=== PATIENT | female | born 1945 | race Caucasian/White ===

== ENCOUNTER 2021-07-08 01:40 | Outpatient (CLI) | payer MEDICARE, SELFPAY ==
--- NOTE | 2021-07-08 09:55 | DI.RAD_ITS ---
Exam(s) RF BARIUM SWALLOW EXAM: RF BARIUM SWALLOW CLINICAL HISTORY: DYSPHAGIA R13.10 AIR/FLUID LEVEL IN LOWER ESOPHAGUS TECHNIQUE: 2D and realtime digital imaging was performed. CONTRAST MATERIAL: Oral barium contrast was administered. COMPARISON: No exams were available for comparison FINDINGS: CHEST X-RAY: The heart and pulmonary vasculature are within normal limits. The lungs are clear. No pl eural effusion or pneumothorax is present. The bones are within normal limits for the patient's age. ESOPHAGRAM: The esophagus is patent with no evidence for erosions, fold thickening, strictures, or ma sses. With regards to the motility, there is a normal primary stripping wave. No tertiary contraction s were noted. There is no hiatal hernia or gastroesophageal reflux. IMPRESSION: Normal esophogram RADIATION DOSE DELIVERED: sean Dukes= mGy
[2021-07-08] MEDS: Barium Sulfate 700 MG TAB PO (10:52)
[2021-07-08] MEDS: Barium Sulfate 60% W/V 355 ML BTL PO (10:54)
== END 2021-07-08 02:00 ==
PROVIDERS: PCP Family Medicine; Visit Provider Radiology Radiation Oncology
DX: R13.19 Other dysphagia (principal)
CPT/HCPCS: 74221; J3490